=== PATIENT | male | born 1985 | race Caucasian/White ===

== ENCOUNTER → 2022-06-17 14:24 | Outpatient (BNVA) | payer SELFPAY | DX: Z02.83 Encounter for blood-alcohol and blood-drug test (principal) ==

== ENCOUNTER → 2022-06-24 14:08 | Outpatient (BNVA) | payer SELFPAY | DX: Z02.83 Encounter for blood-alcohol and blood-drug test (principal) ==

== ENCOUNTER → 2023-06-08 13:30 | Outpatient (BNVA) | payer SELFPAY | DX: Z02.83 Encounter for blood-alcohol and blood-drug test (principal) ==